=== PATIENT | male | born 1975 | race Caucasian/White ===

== ENCOUNTER 2016-06-22 13:18 | Observation (INO) | payer MEDICAID ==
[2016-06-22 13:47] LABS: LYMPHOCYTES# 0.4 X 10^3uL (0.8-3.8); PLATELET COUNT 209 X 10^3uL (130-440)
[2016-06-22 13:51] LABS: BASOPHIL# 0.2 X 10^3uL (0.0-0.1); CHLORIDE 105 mmol/L (98-107); LYMPHOCYTES 2.2 % (20.0-40.0); MEAN CELL VOLUME 90.7 fL (80.0-100.0); MEAN CORPUS. HGB CONCENTRATION 34.7 g/dL (32.0-36.0); MEAN CORPUSCULAR HEMOGLOBIN 31.4 pg (29.0-35.0); MEAN PLATELET VOLUME 7.9 fL (7.4-10.4); MONOCYTES 7.1 % (2.0-10.0); MONOCYTES# 1.2 X 10^3uL (0.2-1.0); NEUTROPHILS# 14.8 X 10^3uL (2.6-6.7); RED BLOOD COUNT 5.73 X 10^6uL (4.20-6.10); SODIUM 138 mmol/L (137-145); WHITE BLOOD COUNT 16.6 X 10^3uL (3.9-10.7)
[2016-06-22 13:52] LABS: BLOOD UREA NITROGEN 30 mg/dL (9-20); EST GLOMERULAR FILTRATION RATE > 60 mL/min; GLUCOSE 109 mg/dL (70-100)
[2016-06-22 14:02] LABS: CALCIUM 8.8 mg/dL (8.4-10.2); MAGNESIUM 2.6 mg/dL (1.6-2.3)
[2016-06-22 14:07] LABS: NEUTROPHILS 89.7 % (54.0-75.0); RED CELL DISTRIBUTION WIDTH 16.2 % (11.5-14.5)
[2016-06-22 14:16] LABS: TROPONIN I 0.056 ng/mL (0.00-0.034)
--- NOTE | 2016-06-22 14:30 | CT REPORT ---
HISTORY: Short of breath COMPARISON: None. TECHNIQUE: This examination was performed using automated exposure control, adjustment of mA or kV according to patient size, and/or use of iterative reconstruction technique. Axial CT imaging from the thoracic i nlet through the upper abdomen following administration of IV contrast during peak opacification of t he pulmonary arteries, multiplanar reformatted and 3-D images are evaluated. 100cc Omnipaque 300 contrast. FINDINGS: There is no focal lung parenchymal nodule. There is no consolidation. There is no pleural effusion. T here is no pneumothorax. There is mild dependent atelectasis. No infiltrate Cardiac structures and great vessels are unremarkable. There is no pathologic mediastinal or hilar ad enopathy. There is no focal bone lesion. There is normal alignment to the thoracic spine. The visualized organs of the upper abdomen are unremarkable. There is normal enhancement within the pulmonary arteries. No evidence for pulmonary embolism. The th oracic aorta is normal. The size of the pulmonary arteries are normal. IMPRESSION: No evidence for pulmonary embolism. Mild dependent atelectasis posteriorly in the lungs. No infiltrate. Report called to Dr. Raman. Final Electronic Signature: This report was electronically signed by Emery Bey MD on 06/22/2016 2: 28 PM. mary /
[2016-06-22 15:19] LABS: C-REACTIVE PROTEIN < 5.0 mg/L (<10.0)
[2016-06-22 15:41] LABS: ERYTHROCYTE SEDIMENTATION RATE 1 MM/HR (0-10)
[2016-06-22] MEDS ORDERED: HOME MEDICATION LIST NEEDED 1 EA EACH MC ONE (16:23)
--- NOTE | 2016-06-22 16:35 | ER PHYSICIAN DOCUMENTATION ---
Physician Documentation [facility] Name:Shabbir Momin Age:40 yrs Sex:Male :1975 Arrival Date:06/22/2016 Time:13:18 Bed1 Private MD: Conrad Lofton Disposition: 06/22 15:50 Chart complete. cd 15:58 Critical Care: not applicable. cd Disposition: 06/22/16 15:59 Admit ordered for Humphrey Williamson. Preliminary diagnosis is Dyspnea - with elevated Troponin: 2nd to unknown etiology. - Bed requested for Medical/Surgical. - Condition is Fair. - Problem is an ongoing problem. - Symptoms are unchanged. 23 HR OBS Yes HPI: 13:30 This 40 yrs old Male presents to ER via Private Vehicle with complaints of cd Shortness Of Breath. 13:30 The patient has shortness of breath at rest, that occurred at home, and the patient has cd a history of asthma, that is intermittent and better as he has grown older.. Onset: The symptom(s)/episode began/occurred gradually, 1 month(s) ago, and became worse 3 day(s) ago. Duration: The symptoms are continuous, and are unchanged since they started. The patient's shortness of breath is aggravated by nothing, is alleviated by nothing. Associated signs and symptoms: Pertinent positives: diaphoresis, Pertinent negatives: chest pain, productive cough, dizziness, fever, hemoptysis, nausea, vomiting. Severity of symptoms: At their worst the symptoms were moderate in the emergency department the symptoms have improved mildly. Patient started with flu like symptoms one month ago. For the past two weeks the patient has been SOB without overt wheezing, fever, chills, sputum production or hemoptysis. He has had no calf pain or swelling. The patient has been seen multiple times at the [facility]. He has been on MDI's, Singulair, Flonase and Flovent. He is currently on his second round or steroids and have not found them to be helpful. Today PFT's were done at the [facility] and found to be normal. A D-Dimer was checked and found to be elevated at 490 and his Troponin was mildly elevated at 0.043. He was sent to the ED for further evaluation for possible PE. He denies any chest pain, pressure, heaviness or pleuritic pain at this time.. Historical: - Allergies: No known drug Allergies; - Home Meds: 1. Albuterol Inhl 2. Flonase 50 mcg/actuation nasal spsn 1 spray 2 times per day as needed 3. Flovent Inhl 4. dexamethasone 6 mg oral tab once daily 5. testosterone cypionate 299 Mg/ML 6. Klonopin 1 mg oral tab 1 tab 2 times per day 7. Pentasa 500 mg oral cpER 2 caps 4 times per day 8. Lipitor 40 mg oral tab 1 tab once daily 9. losartan 25 mg oral tab 1 tab once daily 10. omeprazole 20 mg oral cpDR 1 cap once daily 11. bupropion HCl 300 mg oral Tb24 1 tab once daily - PMHx: Asthma; ADD; ALCOHOLISM; IBS; HYPOTESTERONEMIA; - PSHx: None; - Tetanus: < 10 years. - Ebola Screening: : Patient negative for fever greater than or equal to 101.5 degrees Fahrenheit, and additional compatible Ebola Virus Disease symptoms. - Immunization history: Flu Vaccine < 1 year. - Social history: Smoking status: Patient states was never smoker of tobacco. ROS: 13:45 Eyes: Negative for injury, pain, redness, discharge, blurry vision and loss of vision. cd ENT: Negative for injury, pain, epistaxis and discharge. Neck: Negative for injury, pain, stiffness and swelling. Cardiovascular: Negative for chest pain, palpitations, edema and pleuritic pain. Abdomen/GI: Negative for abdominal pain, nausea, vomiting, diarrhea, constipation, distension, melena, hematochezia and hematemesis. Back: Negative for injury, pain or muscle spasms. : Negative for injury, bleeding, discharge, swelling, dysuria, frequency or urgency. MS/Extremity: Negative for injury, deformity, edema, calf tenderness, pain or coldness. Skin: Negative for injury, rash, itching and discoloration. 13:45 Neuro: Negative for headache, weakness, numbness, tingling, and seizure. cd 13:45 Constitutional: Positive for poor PO intake, Negative for chills, fever. 13:45 Respiratory: Positive for dyspnea on exertion, shortness of breath, Negative for cough, hemoptysis, orthopnea, pleurisy, wheezing. 13:45 All other systems are negative. Exam: Head/Face: Normocephalic, atraumatic. Eyes: Pupils equal round and reactive to light, extra-ocular motions intact. Lids and lashes normal. Conjunctiva and sclera are non-icteric and not injected. Cornea within normal limits. Periorbital areas with no swelling, redness, or edema. ENT: Nares patent. No nasal discharge, no septal abnormalities noted. Tympanic membranes are normal and external auditory canals are clear. Oropharynx with no redness, swelling, or masses, exudates, or evidence of obstruction, uvula midline. Mucous membranes moist. Neck: Trachea midline, no thyromegaly or masses palpated, and no cervical lymphadenopathy. Supple, full range of motion without nuchal rigidity, or vertebral point tenderness. No Meningismus. Chest/axilla: Normal chest wall appearance and motion. Nontender with no deformity. No lesions are appreciated. Abdomen/GI: Soft, non-tender, with normal bowel sounds. No distension or tympany. No guarding or rebound. No evidence of tenderness throughout. Back: No spinal tenderness. No costovertebral tenderness. Full range of motion. Skin: Warm, dry with normal turgor. Normal color with no rashes, no lesions, and no evidence of cellulitis. MS/ Extremity: Pulses equal, no cyanosis. Neurovascular intact. Full, normal range of motion. 13:45 Neuro: Awake and alert, GCS 15, oriented to person, place, time, and situation. cd Cranial nerves II-XII grossly intact. Motor strength 5/5 in all extremities. Sensory grossly intact. Cerebellar exam normal. Normal gait. 13:45 Constitutional: The patient appears alert, awake, non-diaphoretic, non-toxic, well developed, well nourished, anxious. 13:45 Cardiovascular: Rate: tachycardic, actual rate is 110 bpm, Rhythm: regular, Pulses: no pulse deficits are appreciated, Heart sounds: normal, normal S1and S2, Edema: is not appreciated. 13:45 Respiratory: the patient does not display signs of respiratory distress, Respirations: normal, no acute changes, Breath sounds: are normal, clear throughout, no rales, rhonchi, no wheezing. Vital Signs: 13:15 BP 149 / 112; Pulse 87; Resp 15; Temp 98.3; Pulse Ox 95% on R/A; Weight 92.99 kg; rh Height 5 ft. 11 in. (180.34 cm); Pain 0/10; 14:23 BP 161 / 108; Pulse 84; Resp 17; Pulse Ox 95% on R/A; Pain 0/10; rh 15:25 BP 140 / 108; Pulse 78; Resp 15; Pulse Ox 95% on R/A; Pain 0/10; rh 16:33 BP 140 / 108; Pulse 77; Resp 16; Pulse Ox 96% on R/A; rh 13:15 Body Mass Index 28.59 (92.99 kg, 180.34 cm) rh [employer] Coma Score: 13:45 Eye Response: spontaneous(4). Verbal Response: oriented(5). Motor Response: obeys cd commands(6). Total: 15. MDM: 13:32 Patient medically screened. cd 13:35 ECG:. cd 13:35 Test interpretation: by ED physician or midlevel provider: A consult with Dr. Brent Hand was completed. He recommended a Resting Echocardiogram that was found to be normal. No signs of Pericarditis.. 13:38 Data interpreted: Pulse oximetry: on room air is 96 %. Interpretation: normal. cd 13:50 The patient's pulmonary embolism risk score was calculated as follows: the patients cd heart rate is greater than 100 beats per minute (1.5 Pts) Total Score: 0-2 points. This patient was found to be at low risk for a pulmonary embolism by using the Well's assessment criteria. Data reviewed: vital signs, nurses notes, old medical records, EKG, and as a result, I will continue to observe the patient, order radiologic studie(s), CT scan, CTA of the chest to rule out PE., administer IV fluids, NS bolus, NS maintenence. 14:00 Differential diagnosis: Anxiety Reaction asthma, Myocardial Infarction Pulmonary cd Embolism reactive airway disease, Unstable Angina. 14:15 Antibiotic administration: Not indicated. cd 14:25 EKG attached lp 15:10 ED course: The patient remained stable throughout his ED stay. Because of his rising cd Troponin, he was admitted to Dr. Williamson's service for Observation, serial EKG's and repeat Troponins. All admission orders per Dr. Williamson.. 15:50 Counseling: I had a detailed discussion with the patient and/or guardian regarding: the cd historical points, exam findings, and any diagnostic results supporting the discharge/admit diagnosis, lab results, radiology results, the need for further work-up and treatment in the hospital, risk of leaving the Emergency Department. Physician consultation: Humphrey Williamson MD was called at 15:15, was contacted at 15:20, regarding admission, to the floor, consult, patient's condition, need to come to ED to see patient, need to evaluate the patient as soon as possible, and will see patient in ED, shortly. 06/22 13:52 Order name: BASIC METABOLIC PANEL; Complete Time: 15:57 EDMS 06/22 13:55 Interpretation: Normal Except: CARBON DIOXIDE 18; Dehydration. 06/22 14:08 Order name: CBC AUTO DIF, MDIF/RMOR IF IND; Complete Time: 15:57 EDMS 06/22 Interpretation: Normal Except: WHITE BLOOD COUNT 16.6; NEUTROPHILS 89.7; Elevated WBC cd with Left shift. On steroids. 06/22 14:17 Order name: MAGNESIUM; Complete Time: 15:57 EDMS 06/22 14:25 Interpretation: Normal Except: MAGNESIUM 2.6. 06/22 14:17 Order name: TROPONIN I; Complete Time: 15:57 EDMS 06/22 14:27 Interpretation: Abnormal: TROPONIN I 0.056; Mild elevation over 0.043 Tropoinin cd obtained at 10:53 AM this morning. 06/22 15:20 Order name: C-REACTIVE PROTEIN; Complete Time: 15:57 EDMS 06/23 05:15 Interpretation: Normal. cd 06/22 15:38 Order name: INFLUENZA A/B; Complete Time: 15:57 EDMS 06/23 05:15 Interpretation: Normal. cd 06/22 15:42 Order name: ERYTHROCYTE SEDIMENTATION RATE; Complete Time: 15:57 EDMS 06/23 05:15 Interpretation: Normal. 06/22 14:31 Order name: CAT SCAN; CHEST ANGIO 50151; Complete Time: 15:06 EDMS 06/22 15:06 Interpretation: Normal Except: Bibasilar Atalectasis, NO PE or infiltrates....See cd Radiologist's Report. Reviewed by me. 06/22 13:35 Order name: EKG - 12 Lead; Complete Time: 13:50 cd 06/23 05:16 Interpretation: Normal Except: Early repolarization pattern in leads V1 and V2, cd otherwise normal. 06/22 13:51 Order name: Cardiac Monitoring - Continuous; Complete Time: 13:51 rh 06/22 13:51 Order name: Iv Saline Lock; Complete Time: :51 rh EC:31 Rate is 86 beats/min. Rhythm is regular. QRS [place] is Normal. SD interval is normal. QRS cd interval is normal. QT interval is normal. No Q waves. T waves are Normal. ST Segment is elevated in leads V1, V2. Clinical impression: Normal ECG, No evidence of ischemia, and Probable Early Repol pattern in leads V-1, V-2. Interpreted by me. Dispensed Medications: :45 Drug: NS 0.9% 1000 ml; Route: IV; Rate: bolus; Site: right antecubital; rh 14:50 Follow up: IV Status: Completed infusion; IV Intake: 1000ml rh Signatures: Kami Rowell RN RN lp Daley, Chris, MD MD cd Hofsess, Rachel rh
--- NOTE | 2016-06-22 16:35 | ER NURSING DOCUMENTATION ---
Nurse's Notes [facility] Name:Shabbir Momin Age:40 yrs Sex:Male :1975 Arrival Date:06/22/2016 Time:13:18 Bed1 Private MD: Diagnosis:Dyspnea-with elevated Troponin: 2nd to unknown etiology Presentation: 06/22 13:20 Acuity: RODERICK 2 13:40 Presenting complaint: Patient states: Several weeks now patient has felt like he cannot rh take in a deep breath and has developed a hoarse voice, diaphoresis and low energy. Transition of care: Home. 13:40 Method Of Arrival: Private Vehicle Triage Assessment: 13:47 General: Appears in no apparent distress, Behavior is cooperative. Pain: Denies pain. rh EENT: Oral mucosa is dry. Good dentition noted. Neuro: Level of Consciousness is awake, alert, obeys commands. Cardiovascular: Capillary refill < 3 seconds Chest pain is denied. Respiratory: Airway is patent Respiratory effort is even, unlabored, Respiratory pattern is regular, symmetrical, Breath sounds are clear bilaterally. Reports shortness of breath Onset: The symptoms/episode began/occurred Several weeks ago, the patient has mild shortness of breath Denies cough. GI: Abdomen is obese, Denies nausea. : No deficits noted. Derm: Skin is intact, is healthy with good turgor, Skin is pink, warm & dry. Musculoskeletal: Circulation, motion, and sensation intact Range of motion intact in all extremities. Historical: - Allergies: No known drug Allergies; - Home Meds: 1. Albuterol Inhl 2. Flonase 50 mcg/actuation nasal spsn 1 spray 2 times per day as needed 3. Flovent Inhl 4. dexamethasone 6 mg oral tab once daily 5. testosterone cypionate 299 Mg/ML 6. Klonopin 1 mg oral tab 1 tab 2 times per day 7. Pentasa 500 mg oral cpER 2 caps 4 times per day 8. Lipitor 40 mg oral tab 1 tab once daily 9. losartan 25 mg oral tab 1 tab once daily 10. omeprazole 20 mg oral cpDR 1 cap once daily 11. bupropion HCl 300 mg oral Tb24 1 tab once daily - PMHx: Asthma; ADD; ALCOHOLISM; IBS; HYPOTESTERONEMIA; - PSHx: None; - Tetanus: < 10 years. - Ebola Screening: : Patient negative for fever greater than or equal to 101.5 degrees Fahrenheit, and additional compatible Ebola Virus Disease symptoms. - Immunization history: Flu Vaccine < 1 year. - Social history: Smoking status: Patient states was never smoker of tobacco. Screenin:49 Infectious Disease Risk None. Abuse screen: Denies threats or abuse. Denies injuries rh from another. Nutritional screening: No deficits noted. Assessment: 13:49 See Triage Assessment done by same RN. rh Vital Signs: 13:15 BP 149 / 112; Pulse 87; Resp 15; Temp 98.3; Pulse Ox 95% on R/A; Weight 92.99 kg; rh Height 5 ft. 11 in. (180.34 cm); Pain 0/10; 14:23 BP 161 / 108; Pulse 84; Resp 17; Pulse Ox 95% on R/A; Pain 0/10; rh 15:25 BP 140 / 108; Pulse 78; Resp 15; Pulse Ox 95% on R/A; Pain 0/10; rh 16:33 BP 140 / 108; Pulse 77; Resp 16; Pulse Ox 96% on R/A; rh 13:15 Body Mass Index 28.59 (92.99 kg, 180.34 cm) rh [place] Coma Score: 13:45 Eye Response: spontaneous(4). Verbal Response: oriented(5). Motor Response: obeys cd commands(6). Total: 15. ED Course: 13:10 Notified ED Physician of patient's arrival and chief complaint. Dr. Raman notified. 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 Pulse ox on. NIBP on. rh 13:19 Patient arrived in ED. lm3 13:20 Tracy Gonzalez is Primary Nurse. rh 13:20 Triage completed. rh 13:30 EKG done. (by ED staff). Reviewed by Conrad Raman MD. rh 13:32 Conrad Raman MD is Attending Physician. cd 13:35 Inserted peripheral IV: 20 gauge in right antecubital area and blood collected. rh 13:49 Valuables Remains with patient Patient has correct armband on for positive rh identification. Placed in gown. Bed in low position. Call light in reach. Side rails up X 1. 14:[address] hz 14:16 [address] back from [address]. hz 14:25 EKG attached lp 15:30 Diet: Patient given snack. rh 15:58 Humphrey Williamson MD is Admitting Physician. cd Administered Medications: 13:45 Drug: NS 0.9% 1000 ml; Route: IV; Rate: bolus; Site: right antecubital; rh 14:50 Follow up: IV Status: Completed infusion; IV Intake: 1000ml rh Intake: 14:50 IV: 1000ml; Total: 1000ml. Outcome: 15:59 Decision to Admit by Provider. cd 16:33 Admitted to Med/surg accompanied by nurse, via stretcher, with chart. 16:33 Condition: stable 16:33 Discharge Assessment: Patient awake, alert and oriented x 3. No cognitive and/or functional deficits noted. Patient verbalized understanding of disposition instructions. 16:33 Discharge instructions given to patient, Instructed on need to admit 16:34 Patient left the ED. Signatures: Kami Rowell, RN RN lp Conrad Raman MD MD cd Hofsess, Rachel Argelia Quinonez Mary Crump 3
[2016-06-22 17:15] VITALS: O2SAT 94
[2016-06-22] MEDS ORDERED: predniSONE 5 MG TABLET PO SCH ×2 (18:00)
[2016-06-22] MEDS ORDERED: ALBUTEROL 0.083% 2.5 MG/3 ML VIAL.NEB INHALATION PRN (18:03)
[2016-06-22] MEDS: LOSARTAN POTASSIUM 50 MG TABLET PO SCH (18:38)
[2016-06-22] MEDS ORDERED: LOSARTAN POTASSIUM 50 MG TABLET PO SCH (19:00)
[2016-06-22] MEDS: MESALAMINE 250 MG PO SCH (20:38)
[2016-06-22] MEDS: PANTOPRAZOLE 40 MG TABLET PO SCH (20:38)
[2016-06-22] MEDS ORDERED: MONTELUKAST SODIUM 10 MG TABLET PO SCH (21:00)
[2016-06-22] MEDS ORDERED: ATORVASTATIN CALCIUIM 40 MG TABLET PO SCH (21:00)
[2016-06-22] MEDS: LORazepam 1 MG TABLET PO PRN (21:02)
[2016-06-22 23:06] VITALS: RESP 16
[2016-06-23] MEDS: LORazepam 1 MG TABLET PO PRN (02:18)
[2016-06-23 05:35] LABS: BASOPHILS 0.4 % (0.0-2.0); HEMATOCRIT 46.1 % (42.0-54.0); HEMOGLOBIN 15.9 g/dL (14.0-18.0); LYMPHOCYTES 4.5 % (20.0-40.0); LYMPHOCYTES# 0.5 X 10^3uL (0.8-3.8); MEAN CELL VOLUME 91.1 fL (80.0-100.0); MEAN CORPUS. HGB CONCENTRATION 34.4 g/dL (32.0-36.0); MEAN CORPUSCULAR HEMOGLOBIN 31.3 pg (29.0-35.0); MEAN PLATELET VOLUME 8.1 fL (7.4-10.4); MONOCYTES 10.4 % (2.0-10.0); MONOCYTES# 1.2 X 10^3uL (0.2-1.0); NEUTROPHILS 84.7 % (54.0-75.0); NEUTROPHILS# 9.7 X 10^3uL (2.6-6.7); RED BLOOD COUNT 5.07 X 10^6uL (4.20-6.10); WHITE BLOOD COUNT 11.4 X 10^3uL (3.9-10.7)
[2016-06-23 05:54] VITALS: BP 150/88; PULSE 88; TEMP 98.2
[2016-06-23] MEDS: PANTOPRAZOLE 40 MG TABLET PO SCH (05:54)
[2016-06-23 05:55] LABS: TROPONIN I 0.012 ng/mL (0.00-0.034)
[2016-06-23] MEDS ORDERED: predniSONE 10 MG TABLET PO SCH ×2 (06:00→09:00)
--- NOTE | 2016-06-23 08:12 | DC SUMMARY: IM Note ---
Discharge Summary: IM/Peds Provider: Date of Admission: 06/22/16 Admitting Provider: KAYLEE CROCKETT MD Attending Provider: KAYLEE CROCKETT MD Discharging Provider: KAYLEE CROCKETT MD Primary Care Provider: Discharge Date: 06/23/16 - Diagnosis (1) Asthma exacerbation Status: Acute (2) Elevated d-dimer Status: Acute (3) Elevated troponin level Status: Acute (4) Hypertension Status: Acute (5) Leukocytosis Status: Acute (6) Tachycardia Status: Acute Hospital Course: This 40-year-old [facility] patient was admitted to [facility] because of an elevated troponin level. This borderline elevation resolved overnight, and may have been due to cardiac strain related to tachycardia from albuterol nebulizer treatments at [facility] and relatively high dose oral steroid use dexamethazone 6 mg bid. He never had any chest pain, but for the past week has had some shortness of breath with exertion. Spirometry in the emergency room showed no significant abnormalities and no improvement with bronchodilator. His echocardiogram also was normal. His CTA of the chest showed some minor right basilar atelectasis. His EKG did show [address] elevation in leads V1 and V2 initially, which resolved overnight. he does have some cardiac risk factors, including hyperlipidemia and hypertension. His main complaint on admission was having dyspnea with exertion over the past week. This was most pronounced on 06/19/16 and has gradually improved since then. He started on dexamethasone several days prior to that, making asthma a less likely etiology. on the other hand, he did have a recent viral URI 3-4 weeks ago, possibly influenza, which is common in the community currently. He did not get tested for that. he does have a prior history of asthma, but felt that his current dyspnea was different. Today he denies any dyspnea and maintained O2 saturations in the 91-96% range with exertion and at rest on room air. I plan to discharge him today with follow-up tomorrow at cardiology to include an exercise treadmill test. After that, he should follow up with [facility], Evelyne Blackman NP. In the meantime, I will have him take an aspirin daily. I will switch him from dexamethasone to prednisone, tapering off over the next 8 days from 20 mg every morning. ultimately, he should see Dr. Garcia to follow up with his history of sleep apnea and asthma. He has been unable to use his CPAP over the last 3-4 weeks, since getting his URI. - Time Spent with Patient Total time spent providing and/or coordinating discharge services: Discharge - Patient/Caregiver Discharge Instructions Activity Level: as tolerated Diet: regular Home Medications: predniSONE [Deltasone*] 5 - 20 mg PO DAILY@0700 #20 tablet Disposition: HOME, SELF-CARE Discharge Summary Data - Medication History Medication History: Home Medications Albuterol Hfa [Proventil Inhaler*] 1 inh INHALATION Q4H PRN 06/22/16 Atorvastatin Calcium [Lipitor*] 40 mg PO HS 06/22/16 Cholecalciferol [Vitamin D*] 2,000 unit PO DAILY 06/22/16 Fluticasone Hfa 44 Mcg [Flovent Hfa 44Mcg*] 220 mcg INHALATION BID 06/22/16 Fluticasone Nasal [Flonase Nasal [place]*] 1 spr NASAL DAILY 06/22/16 Losartan Potassium [Cozaar*] 25 mg PO HS 06/22/16 Mesalamine Cr [Pentasa*] 1,000 mg PO QID 06/22/16 Montelukast Sodium [Singular*] 10 mg PO HS 06/22/16 Omeprazole 20 mg PO EVERY MORNING 06/22/16 Testosterone Cypionate [Depo-Testosterone] 100 mg IM DIRECTED 06/22/16 buPROPion XL DAILY [Wellbutrin Xl Daily*] 300 mg PO EVERY MORNING 06/22/16 clonazePAM [Klonopin*] 0.5 - 1 mg PO BID #0 06/23/16 predniSONE [Deltasone*] 5 - 20 mg PO DAILY@0700 #20 tablet 06/23/16 Inpatient Medications 06/22/16 17:41 LORazepam [Ativan] 1 mg PO Q6H PRN 06/22/16 18:00 Losartan Potassium [Cozaar] 25 mg PO DAILY predniSONE [Deltasone] 5 - 20 mg PO DAILY@1800 06/22/16 18:03 Albuterol 0.083% [Ventolin 0.083% Neb Soln] 2.5 mg INHALATION Q6H PRN 06/22/16 21:00 Atorvastatin Calcium [Lipitor] 40 mg PO HS Mesalamine Cr [Pentasa] 1,000 mg PO QID Montelukast Sodium [Singular] 10 mg PO HS Pantoprazole [Protonix] 40 mg PO BID@0630,2100 06/23/16 06:00 predniSONE [Deltasone] 20 mg PO DAILY@0606/23/16 09:00 buPROPion XL DAILY [Wellbutrin Xl Daily] 300 mg PO DAILY Procedures and tests throughout hospitalization: Completed Lab Orders 06/22/16 20:24 TROPONIN I [CHEM] Routine Pending Orders 06/22/16 17:41 LORazepam [Ativan] 1 mg PO Q6H PRN 06/22/16 18:00 Losartan Potassium [Cozaar] 25 mg PO DAILY predniSONE [Deltasone] 5 - 20 mg PO DAILY@1800 06/22/16 18:03 Albuterol 0.083% [Ventolin 0.083% Neb Soln] 2.5 mg INHALATION Q6H PRN 06/22/16 20:30 EKG Q8HX2 06/22/16 21:00 Atorvastatin Calcium [Lipitor] 40 mg PO HS Mesalamine Cr [Pentasa] 1,000 mg PO QID Montelukast Sodium [Singular] 10 mg PO HS Pantoprazole [Protonix] 40 mg PO BID@0630,209906/23/16 06:00 predniSONE [Deltasone] 20 mg PO DAILY@59906/23/16 09:00 buPROPion XL DAILY [Wellbutrin Xl Daily] 300 mg PO DAILY Labs on day of discharge: Labs from last 24 hours 06/23/16 06/22/16 05:00 20:24 WBC 11.4 H RBC 5.07 Hgb 15.9 Hct 46.1 MCV 91.1 MCH 31.3 MCHC 34.4 RDW 17.0 H Plt Count 159 MPV 8.1 Neutrophils % 84.7 H Lymphocytes % 4.5 L Eosinophils % 0.0 Basophils % 0.4 Neutrophils # 9.7 H Lymphocytes # 0.5 L Monocytes 10.4 H Monocytes # 1.2 H Eosinophils # 0.0 Basophils # 0.0 Troponin I 0.012 0.035 H IM: Discharge Physical Exam - I&O/Vital Signs I&O: Intake & Output 06/22/16 06/23/16 06/23/16 21:59 05:59 13:59 Weight 92.533 kg 92.533 kg Other: Voiding Method Toilet Vital Signs: Last Vital Signs Temp 36.8 C 06/23/16 05:53 Pulse 88 06/23/16 05:53 Resp 16 06/23/16 05:53 BP 150/88 06/23/16 05:53 Pulse Ox 94 06/23/16 05:53 Oxygen Flow Rate 0 Oxygen Delivery Method Room Air - Constitutional General appearance: Present: cooperative, obese. Absent: acute distress - ENT ENT exam: Present: mucous membranes moist - Respiratory Respiratory exam: Present: clear - Cardiovascular Cardiovascular exam: Present: RRR. Absent: systolic murmur - GI/Abdominal GI/Abdominal exam: Present: soft. Absent: tenderness - Extremities Exam Extremities exam: Absent: calf tenderness - Psychiatric Psychiatric exam: Present: normal mood. Absent: anxious, depressed - Skin Skin exam: Absent: rash - Allied Health Notes Allied health notes reviewed: nursing
[2016-06-23] MEDS: MESALAMINE 250 MG PO SCH (08:21)
[2016-06-23] MEDS: LOSARTAN POTASSIUM 50 MG TABLET PO SCH (08:21)
[2016-06-23] MEDS ORDERED: buPROPion XL DAILY 150 MG TABLET PO SCH (09:00)
--- NOTE | 2016-06-23 09:17 | HISTORY & PHYSICAL ---
DATE OF ADMISSION: 06/22/16 PRIMARY CARE PHYSICIAN: SARAH Alvarado [facility] ATTENDING PHYSICIAN: Humphrey Williamson MD CHIEF COMPLAINT: Fatigue, recent dyspnea. HISTORY OF PRESENT ILLNESS: This 40-year-old gentleman was seen at [facility] 4 times in the last month, initially for URI symptoms, but more recently for dyspnea and fatigue. Today he had labs drawn there which included a troponin level which was borderline elevated, prompting the transfer to the Emergency Department. Patient has not had any chest pains, but over the last week or so has had some dyspnea. This was most pronounced on 06/19/16, but has improved since then on dexamethasone 6 mg b.i.d. He does have a history of asthma for which he chronically takes Flovent and Singular plus PRN Albuterol. Today he denies any wheezing, and his pulmonary function tests show no improvement after a bronchodilator. He has no history of coronary disease and has never smoked. Lately he has had some mild tachycardia. He has no history of pulmonary emboli or other thromboembolic disease. PAST MEDICAL HISTORY 1. Asthma. 2. Sleep apnea treated with CPAP; however, he has been unable to tolerate that the last 4 nights. 3. ADD. 4. Alcohol use. 5. Hypotestosteronemia. 6. Irritable bowel syndrome. MEDICATIONS Albuterol metered dose inhaler 2 puffs q.4 hours PRN. Flovent 220 mcg 1 puff twice daily. Singular 10 mg daily orally. Flonase 50 mcg in each nostril 1 daily. Dexamethasone 6 mg b.i.d. Testosterone daily topically. Klonopin 1 mg b.i.d. over the last week, but prior to that it was at 0.5 mg q.h.s. Pentasa 500 mg tabs 2 tabs q.i.d. Losartan 25 mg daily. Bupropion XL 300 mg daily. Omeprazole 20 mg daily. Vitamin D 2000 units daily. Atorvastatin 40 mg nightly. ALLERGIES: No known drug allergies. REVIEW OF SYSTEMS GENERAL: Fatigue without fever or chills. RESPIRATORY: Some shortness of breath. Minimal cough now, but had moderate cough several weeks ago. No wheezing. CARDIOVASCULAR: No chest pain or palpitations. GI: No heart burn, nausea, vomiting or diarrhea. : No dysuria or flank pain. MUSCULOSKELETAL: No myalgias or arthralgias. NEURO: No numbness or weakness focally. SOCIAL HISTORY: Patient lives here in [place]. He has an ex- and son in town. He is currently unemployed. He drinks 4-5 ounces of alcohol 3-5 times per week. No smoking never a smoker. PHYSICAL EXAMINATION VITAL SIGNS: On admission were a temperature of 36.8, blood pressure 148/107, pulse 96, respiratory rate 18, room air pulse oxygen 94%. GENERAL: He was alert and oriented x3 and in no acute distress. HEENT: Atraumatic. Ears with pearly colored TMs. Sinuses were nontender and throat without erythema. His oral mucosa is moist. NECK: Without adenopathy. LUNGS: Clear. HEART: Regular rate and rhythm with borderline tachycardia and no murmur. ABDOMEN: Slightly obese and nontender without masses or hepatosplenomegaly. EXTREMITIES: Without edema. NEURO EXAM: Nonfocal. LABORATORY DATA: White count of 16,600 with 90% neutrophils, 2% lymphs, and no eosinophils. Hemoglobin 18, hematocrit 52 and platelets at 209,000. His sodium was 138, potassium 4.0, chloride 105, CO2 18, creatinine 1.0, glucose 109, magnesium 2.6, troponin at 0.056 and C-reactive protein less than 5. His influenza test was negative. His D-Dimer was elevated at 490. The troponin level was 0.056. C-reactive protein was less than 5 and his sed rate was only 1. IMAGING: A CTA of his chest showed no pulmonary emboli and only showed some mild dependent atelectasis posteriorly. No infiltrates. Echocardiogram was normal. EKG: Showed [address] elevation in V1 and upsloping [address] elevation in V2 but otherwise no repolarization abnormalities. PULMONARY FUNCTION TEST: Before and after bronchodilator showed a FEV1 at 89% of predicted, FVC at 93% of predicted and no change with bronchodilator. ASSESSMENT 1. Borderline elevation or troponin level accompanied by recent history of dyspnea and fatigue. Most likely this represents some cardiac strain from his tachycardia, but an myocardial infarction needs to be ruled out. His ST elevation in V1 and V2 are worrisome. 2. Three-four weeks S/P viral URI. 3. Chronic asthma with acute recent exacerbation, now improved after oral steroids at high dose for the past week. Prior to this course of Dexamethasone, he did have a course of lower dose Prednisone, as well. 4. Hypertension. 5. Sleep apnea. 6. Chronic Benzodiazepine use. 7. Excessive alcohol use. PLAN: Patient has been admitted overnight for observation to rule out acute coronary syndrome. He will have the usual serial EKGs and cardiac enzymes. I will continue his usual medications but convert him to Prednisone rather than dexamethasone, using 20 mg in the morning and 10 mg in the afternoon. Hopefully can wean off of that in the next week. I suspect his leukocytosis is related to the steroid use. I do not find any source of bacterial illness and will hold off on any antibiotics. Will recheck a CBC in the morning. I will continue the patient on Benzodiazepines, but use Lorazepam 1 mg q.4-6 hours PRN. He may get some component of alcohol withdrawal. We will monitor his O2 saturations through the night and see if he is hypoxic with his sleep apnea. DANIEL
== END 2016-06-23 08:18 | disposition home or self-care (01) ==
LOC: ER 13:18 → IN 16:29
PROVIDERS: ADMIT Family Medicine; ATTEND Family Medicine
DX: J45.901 Unspecified asthma with (acute) exacerbation (principal); R74.8 Abnormal levels of other serum enzymes; R00.0 Tachycardia, unspecified; D72.829 Elevated white blood cell count, unspecified; G47.30 Sleep apnea, unspecified; F60.3 Borderline personality disorder; K58.9 Irritable bowel syndrome, unspecified; Z79.899 Other long term (current) drug therapy
CPT/HCPCS: 36415; 71275; 80048; 83735; 84484; 85025; 85651; 86140; 87449; 93005; 93041; 93306; 96360; 99285; G0378; J7512